=== PATIENT | female | born 1945 | race American Indian/Alaskan Native ===

== ENCOUNTER 2017-04-12 09:40 | Outpatient (CLI) | payer MEDICARE, OTHER ==
--- NOTE | 2017-04-12 12:29 | Mammography Report ---
Bilateral mammogram: Compared to 03/30/16. CAD study utilized. Findings: Predominance of adipose tissue bilaterally. Focal focal asymmetry outer posterior right breast and lower right breast. No microcalcifications. Benign medullary nodes. Impression: New focal asymmetries right breast. Recommend spot mag and if necessary sonographic examination. BI-RADS CATEGORY: 0 = Needs additional imaging evaluation ACR BI-RADS MAMMOGRAPHIC CODES: 0 = Needs additional imaging evaluation; 1 = Negative; 2 = Benign; 3 = Probably benign; 4 = Suspicious; 5 = Malignant; 6 = Known biopsy-proven malignancy COMMENT: 1. Dense breast tissue, i.e., adenosis, fibrocystic changes, etc., may obscure an underlying neoplasm. 2. Approximately 10% of cancers are not detected with mammography. 3. A negative mammography report should not delay biopsy if a clinically suspicious mass is present. COMMENT: Patient follow-up letters are generated in [employer]
== END 2017-04-12 09:41 | disposition home or self-care (01) ==
LOC: SPVWC 09:40
PROVIDERS: ATTEND Obstetrics & Gynecology Gynecology
DX: Z12.31 Encounter for screening mammogram for malignant neoplasm of breast (principal); E11.9 Type 2 diabetes mellitus without complications; I10 Essential (primary) hypertension
CPT/HCPCS: 77067; G0202

== ENCOUNTER 2017-04-27 09:58 | Outpatient (CLI) | payer MEDICARE ==
--- NOTE | 2017-04-27 10:57 | Mammography Report ---
RIGHT DIGITAL DIAGNOSTIC MAMMOGRAM : 04/27/17 09:58:00 CLINICAL: Recalled for asymmetry. COMPARISON:04/12/17 screening FINDINGS: ML and spot compression MLO and CC views were performed. Satisfactory effacement of the previously described asymmetry on the spot views. The lateral view is negative. IMPRESSION: Negative Mammogram. BI-RADS CATEGORY: 1 -- Negative RECOMMENDATION: Routine mammographic screening in one year. ACR BI-RADS MAMMOGRAPHIC CODES: 0 = Needs additional imaging evaluation; 1 = Negative; 2 = Benign; 3 = Probably benign; 4 = Suspicious; 5 = Malignant; 6 = Known biopsy-proven malignancy COMMENT: 1. Dense breast tissue, i.e., adenosis, fibrocystic changes, etc., may obscure an underlying neoplasm. 2. Approximately 10% of cancers are not detected with mammography. 3. A negative mammography report should not delay biopsy if a clinically suspicious mass is present. COMMENT: Patient follow-up letters are generated via our [employer] application.
== END 2017-04-27 09:59 | disposition home or self-care (01) ==
LOC: SPVWC 09:58
PROVIDERS: ATTEND Obstetrics & Gynecology
DX: N64.89 Other specified disorders of breast (principal); I10 Essential (primary) hypertension; E78.00 Pure hypercholesterolemia, unspecified; Z87.891 Personal history of nicotine dependence
CPT/HCPCS: G0206-RT

== ENCOUNTER 2018-05-09 09:38 | Outpatient (CLI) | payer MEDICARE ==
--- NOTE | 2018-05-09 14:41 | Mammography Report ---
BILATERAL DIGITAL SCREENING MAMMOGRAM with CAD: 05/09/18 09:38:00 CLINICAL: Routine screening. COMPARISON:04/12/17 and 04/27/17 FINDINGS: There are bilateral scattered fibroglandular densities. Persistent right outer architectural distortion on the CC view requires additional evaluation. There is questionable correlation on the MLO view. No mass or suspicious calcifications. The left breast is negative. IMPRESSION: Right outer architectural distortion requiring further workup. BI-RADS CATEGORY: 0 -- Additional Imaging Evaluation Required RECOMMENDATION: Recall for right MLO and CC spot magnification views and right breast ultrasound. ACR BI-RADS MAMMOGRAPHIC CODES: 0 = Needs additional imaging evaluation; 1 = Negative; 2 = Benign; 3 = Probably benign; 4 = Suspicious; 5 = Malignant; 6 = Known biopsy-proven malignancy COMMENT: 1. Dense breast tissue, i.e., adenosis, fibrocystic changes, etc., may obscure an underlying neoplasm. 2. Approximately 10% of cancers are not detected with mammography. 3. A negative mammography report should not delay biopsy if a clinically suspicious mass is present. COMMENT: Patient follow-up letters are generated via our [employer] application.
== END 2018-05-09 09:39 | disposition home or self-care (01) ==
LOC: SPVWC 09:38
PROVIDERS: ATTEND Obstetrics & Gynecology Gynecology
DX: Z12.31 Encounter for screening mammogram for malignant neoplasm of breast (principal); E11.9 Type 2 diabetes mellitus without complications; I10 Essential (primary) hypertension; E78.5 Hyperlipidemia, unspecified; Z82.49 Family history of ischemic heart disease and other diseases of the circulatory system; Z83.3 Family history of diabetes mellitus
CPT/HCPCS: 77067

== ENCOUNTER 2018-05-26 10:05 | Outpatient (CLI) | payer MEDICARE ==
--- NOTE | 2018-05-26 11:14 | Mammography Report ---
right DIGITAL DIAGNOSTIC MAMMOGRAM : 05/26/18 10:05:00 CLINICAL: Recalled for asymmetry. COMPARISON:05/09/18 screening FINDINGS: Additional mammographic views were performed and are negative. IMPRESSION: Negative Mammogram. BI-RADS CATEGORY: 1 -- Negative RECOMMENDATION: Routine mammographic screening in one year. ACR BI-RADS MAMMOGRAPHIC CODES: 0 = Needs additional imaging evaluation; 1 = Negative; 2 = Benign; 3 = Probably benign; 4 = Suspicious; 5 = Malignant; 6 = Known biopsy-proven malignancy COMMENT: 1. Dense breast tissue, i.e., adenosis, fibrocystic changes, etc., may obscure an underlying neoplasm. 2. Approximately 10% of cancers are not detected with mammography. 3. A negative mammography report should not delay biopsy if a clinically suspicious mass is present. COMMENT: Patient follow-up letters are generated via our [employer] application.
== END 2018-05-26 10:06 | disposition home or self-care (01) ==
LOC: SPVWC 10:05
PROVIDERS: ATTEND Obstetrics & Gynecology Gynecology
DX: R92.8 Other abnormal and inconclusive findings on diagnostic imaging of breast (principal); I10 Essential (primary) hypertension; E11.9 Type 2 diabetes mellitus without complications; E78.5 Hyperlipidemia, unspecified; E78.00 Pure hypercholesterolemia, unspecified; Z87.891 Personal history of nicotine dependence

== ENCOUNTER 2018-05-30 09:28 | Outpatient (CLI) | payer MEDICARE ==
--- NOTE | 2018-05-30 11:23 | Mammography Report ---
BONE DEXA:05/30/18 09:28:00 CLINICAL: Osteoporosis. COMPARISON: 05/27/16 and 09/27/11 TECHNIQUE: Two site bone DEXA performed on an Hologic scanner. FINDINGS: The average BMD of the lumbar spine L1-L4 is 0.740g/cm squared with a T-score of -3.7 and a Z-score of -1.2. This compares to 0.759g/cm squared on the last exam and represents a -2.4% change from the previous study but only a -0.9% change from baseline. The average BMD of the left hip is 0.741g/cm squared with a T-score of -1.9 and a Z-score of and a 0.6. This compares to 0.767g/cm squared on the last exam and represents a -3.4% change from the previous study but a +1.2% change from baseline. IMPRESSION: 1. WHO classification: Osteoporosis with high fracture risk based on spine measurements. 2. WHO classification: Osteopenia with increased fracture risk based on left hip measurements. 3. A modest decline in both spine and left hip BMD compared to the last exam. RECOMMENDATION: Clinical correlation and routine screening. DEFINITIONS: BMD = Bone Mineral Density T-score = BMD related to mean peak bone mass of young adult (mean expressed in Standard Deviation) Z-score = Age matched BMD expressed in SD World Health Organization (WHO) Diagnostic Criteria Normal T-score > -1 SD Osteopenia T-score between -1 and -2.4 SD Osteoporosis T-score -2.5 SD or below NOTE: BMD is not the only risk factor for fracture; also consider factors such as the patient's age, risk of falling, previous osteoporotic fracture, family history of osteoporotic fractures, current smoker, and low body weight. Z-scores are not calculated if >80 years of age.
== END 2018-05-30 09:29 | disposition home or self-care (01) ==
LOC: SPVWC 09:28
PROVIDERS: ATTEND Family Medicine
DX: M81.0 Age-related osteoporosis without current pathological fracture (principal); M85.88 Other specified disorders of bone density and structure, other site; E78.00 Pure hypercholesterolemia, unspecified; E11.9 Type 2 diabetes mellitus without complications; I10 Essential (primary) hypertension; Z78.0 Asymptomatic menopausal state; F17.210 Nicotine dependence, cigarettes, uncomplicated
CPT/HCPCS: 77080

== ENCOUNTER 2019-05-16 10:28 | Outpatient (CLI) | payer MEDICARE ==
--- NOTE | 2019-05-16 12:51 | Mammography Report ---
BILATERAL SCREENING MAMMOGRAM DIGITAL WITH CAD 3D TOMOSYNTHESIS INDICATION: Screening. COMPARISONS: 05/09/2018 FINDINGS: 2D and 3D craniocaudal and mediolateral oblique views of both breasts were obtained [employer] digital acquisition. In addition to standard review, the examination was analyzed for possible abn ormalities using a computer-assisted detection device (R2 Image Lead Manufacturing Engineer). There are scattered areas of fibroglandular density. No mass, architectural distortion or suspicious calcifications. No suspicious findings are noted in either breast. IMPRESSION: NO EVIDENCE OF MALIGNANCY IN EITHER BREAST. SCREENING MAMMOGRAPHY IN ONE YEAR IS RECOMMENDED. BI-RADS CATEGORY 1: NEGATIVE COMMENT: Patient follow-up letters are generated by our [employer] application. Signer Name: Dieudonne Chan MD Signed: 05/16/2019 12:42 PM Workstation Name: [id number]
--- NOTE | 2019-05-16 12:51 | Mammography Report ---
BILATERAL SCREENING MAMMOGRAM DIGITAL WITH CAD 3D TOMOSYNTHESIS INDICATION: Screening. COMPARISONS: 05/09/2018 FINDINGS: 2D and 3D craniocaudal and mediolateral oblique views of both breasts were obtained [employer] digital acquisition. In addition to standard review, the examination was analyzed for possible abn ormalities using a computer-assisted detection device (R2 Image Business Dean). There are scattered areas of fibroglandular density. No mass, architectural distortion or suspicious calcifications. No suspicious findings are noted in either breast. IMPRESSION: NO EVIDENCE OF MALIGNANCY IN EITHER BREAST. SCREENING MAMMOGRAPHY IN ONE YEAR IS RECOMMENDED. BI-RADS CATEGORY 1: NEGATIVE COMMENT: Patient follow-up letters are generated by our [employer] application. Signer Name: Dieudonne Chan MD Signed: 05/16/2019 12:42 PM Workstation Name: [id number]
== END 2019-05-16 10:29 | disposition home or self-care (01) ==
LOC: SPVWC 10:28
PROVIDERS: ATTEND Obstetrics & Gynecology
DX: Z12.31 Encounter for screening mammogram for malignant neoplasm of breast (principal); E78.00 Pure hypercholesterolemia, unspecified; I10 Essential (primary) hypertension
CPT/HCPCS: 77063; 77067

== ENCOUNTER 2020-06-11 10:31 | Outpatient (CLI) | payer MEDICARE | END 2020-06-11 10:32 | disposition home or self-care (01) | LOC: SPVWC 10:31 | PROVIDERS: ATTEND Obstetrics & Gynecology | DX: Z12.31 Encounter for screening mammogram for malignant neoplasm of breast (principal) | CPT/HCPCS: 77067 ==

== ENCOUNTER 2020-06-18 10:03 | Outpatient (CLI) | payer MEDICARE | END 2020-06-18 10:04 | disposition home or self-care (01) | LOC: SPVWC 10:03 | PROVIDERS: ATTEND Family Medicine | DX: M81.0 Age-related osteoporosis without current pathological fracture (principal) | CPT/HCPCS: 77080 ==

== ENCOUNTER 2021-06-17 10:04 | Outpatient (CLI) | payer MEDICARE ==
--- NOTE | 2021-06-18 08:59 | Mammography Report ---
DIGITAL SCREENING MAMMOGRAM WITH TOMOSYNTHESIS WITH CAD, 06/17/2021 CLINICAL INFORMATION / INDICATION: Screening TECHNIQUE: Digital bilateral 2D and 3D mammography with tomosynthesis was obtained in the craniocaud al and mediolateral oblique projections. Computer-Aided Detection (CAD) analysis was used for interp retation of this study. COMPARISON: 06/11/2020 FINDINGS: Breast Density: There are scattered areas of fibroglandular density. No dominant mass, suspicious calcifications, or architectural distortion in either breast. IMPRESSION: No mammographic evidence of malignancy. Follow up recommendation: Routine yearly BI-RADS Category 1: Negative. A "normal" or negative report should not discourage follow up or biopsy of a clinically significant f inding. A written summary of these findings will be mailed to the patient. The patient will be entered into a mammography reporting system which will generate a reminder letter for the patient's next appointmen t at the appropriate interval. The [employer] recommends yearly mammograms starting at age 40 and continuing as l radha as a woman is in good health. Breast MRI is recommended for women with an approximate 20-25% or greater lifetime risk of breast cancer, including women with a strong family history of breast or ova dequan cancer or who have been treated for Hodgkin's disease. Signer Name: Kraig Adams MD Signed: 06/18/2021 8:55 AM Workstation Name: [id number]
== END 2021-06-17 10:05 | disposition home or self-care (01) ==
LOC: SPVWC 10:04
PROVIDERS: ATTEND Obstetrics & Gynecology
DX: Z12.31 Encounter for screening mammogram for malignant neoplasm of breast (principal)
CPT/HCPCS: 77063; 77067

== ENCOUNTER 2022-06-30 09:52 | Outpatient (CLI) | payer MEDICARE ==
--- NOTE | 2022-07-02 08:41 | Mammography Report ---
DIGITAL SCREENING MAMMOGRAM WITH CAD, 06/30/2022 CLINICAL INFORMATION / INDICATION: Routine screening mammography. TECHNIQUE: Digital bilateral 2D mammography was obtained in the craniocaudal and mediolateral obliqu e projections. This examination was interpreted with the benefit of Computer-Aided Detection analysis . COMPARISON: 06/17/2021, 06/11/2020, 05/16/2019 FINDINGS: Breast Density: There are scattered areas of fibroglandular density. No dominant mass, suspicious calcifications, or architectural distortion in either breast. There has been no significant interval change. IMPRESSION: No mammographic evidence of malignancy. Follow up recommendation: Routine yearly screening mammogram. BI-RADS Category 1: NEGATIVE A "normal" or negative report should not discourage follow up or biopsy of a clinically significant f inding. A written summary of these findings will be mailed to the patient. The patient will be entered into a mammography reporting system which will generate a reminder letter for the patient's next appointmen t at the appropriate interval. The [employer] recommends yearly mammograms starting at age 40 and continuing as l radha as a woman is in good health. Breast MRI is recommended for women with an approximate 20-25% or greater lifetime risk of breast cancer, including women with a strong family history of breast or ova dequan cancer or who have been treated for Hodgkin's disease. Signer Name: Yadira Bueno MD Signed: 07/02/2022 8:36 AM Workstation Name: [id number]
== END 2022-06-30 09:53 | disposition home or self-care (01) ==
LOC: SPVWC 09:52
PROVIDERS: ATTEND Obstetrics & Gynecology
DX: Z12.31 Encounter for screening mammogram for malignant neoplasm of breast (principal)
CPT/HCPCS: 77067